=== PATIENT | male | born 1990 | race Caucasian/White ===

== ENCOUNTER 2016-12-09 05:53 | Day surgery (SDC) | payer BC ==
[2016-12-09 06:15] VITALS: O2SAT 97
[2016-12-09] MEDS ORDERED: Lactated Ringers 1,000 ML IV SCH (06:30)
[2016-12-09] MEDS ORDERED: DIPRIVAN 200 MG/20 ML IV ONE (08:00)
[2016-12-09] MEDS ORDERED: Ketamine HCl 50 MG/ML IV ONE (08:00)
[2016-12-09 08:31] VITALS: BP 134/79; PULSE 81
--- NOTE | 2016-12-09 10:49 | OP ---
SURGERY DATE/TIME: 12/09/2016709 PREOPERATIVE DIAGNOSIS: Chronic diarrhea. POSTOPERATIVE DIAGNOSIS: Normal colon. PROCEDURE: Colonoscopy with biopsy. SURGEON: Dr. Arita. ANESTHESIA: MAC. Medications given by anesthesia department. HISTORY: The patient is a 26 year-old white male patient who reports diarrhea over the past two weeks. He reports he has always had problems with diarrhea after having meals that has gotten worse recently. The patient was felt the need to have endoscopic evaluation. He was appraised of the risks of the procedure including the risk of perforation, phlebitis, untoward reaction to medication, bleeding, and missed lesions. The patient verbalized his understanding and desired to have the procedure performed. DESCRIPTION OF PROCEDURE: The patient was given the medications by the anesthesia department. The patient had continuous pulse oximetry, ECG monitoring, intermittent blood pressure monitoring, and tidal CO2 monitoring during the examination. He was placed in the left lateral decubitus position. A digital rectal examination was performed and revealed normal anal sphincter tone and no masses. The flexible Olympus pediatric colonoscope was used to intubate the rectum. A view of the colon was developed sequentially to the cecum. Upon insertion and withdrawal, including a retroflex view in the rectum, no mucosal lesions were encountered. We did multiple biopsies throughout the colon random segments to rule out any collagenous colitis. The scope was removed from the patient who tolerated the procedure well and was sent back to OP recovery in good condition. The prep was noted to be fair.
== END 2016-12-09 08:30 | disposition home or self-care (01) ==
LOC: SDC 05:53
PROVIDERS: ATTEND Family Medicine
PROC: 0DBE8ZX Excision of Large Intestine, Via Natural or Artificial Opening Endoscopic, Diagnostic (ICD-10-PCS; principal; 2016-12-09)
DX: R19.7 Diarrhea, unspecified (principal)
CPT/HCPCS: 00810; 36415; 88305; J2704

== ENCOUNTER 2017-08-03 10:28 | Emergency (ER) | payer OTHER | END 2017-08-03 12:06 | disposition left against medical advice (07) | LOC: ED 10:28 | DX: Z53.9 Procedure and treatment not carried out, unspecified reason (principal) ==

== ENCOUNTER 2021-03-23 14:00 | Emergency (ER) | payer OTHER ==
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
[2021-03-23 15:29] VITALS: BP 130/80; PULSE 96; O2SAT 98
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
== END 2021-03-23 16:59 | disposition home or self-care (01) ==
LOC: ED 14:00
DX: Z04.71 Encounter for examination and observation following alleged adult physical abuse (principal); S02.2XXA Fracture of nasal bones, initial encounter for closed fracture; Y04.0XXA Assault by unarmed brawl or fight, initial encounter; S00.83XA Contusion of other part of head, initial encounter
CPT/HCPCS: 70450; 70486; 72125; 99283

== ENCOUNTER 2024-02-07 06:35 | Emergency (ER) | payer OTHER ==
[2024-02-07 07:08] VITALS: TEMP 97.6
[2024-02-07 07:49] LABS: Absolute Neutrophil Ct (ANC) 5.76 x10^3/uL (1.4-6.9); BASOPHIL % 0.7 % (0.0-0.4); Basophil (Absolute #) 0.06 x10^3/uL (0-0.4); Eosinophil % 4.1 % (0.00-5.0); Eosinophil (Absolute #) 0.34 x10^3/uL (0-0.5); Hematocrit 37.2 % (42-50); Hemoglobin 12.1 g/dL (12.5-18.0); IMMATURE GRAN # 0.02 x10^3u/L (0.00-0.03); IMMATURE GRAN % 0.2 % (0.00-0.4); Lymphocyte (Absolute #) 1.34 x10^3/uL (1.0-4.6); Lymphocytes % 16.2 % (24.0-44.0); Mean Cell Volume 92.3 fL (78-100); Mean Corpuscular Hgb Concent. 32.5 g/dL (32-36); Mean Platelet Volume 8.7 fL (7.5-11.0); Monocyte (Absolute #) 0.76 x10^3/uL (0.0-1.3); Monocytes % 9.2 % (0.0-12.0); Neutrophil % 69.6 % (36.0-66.0); Platelet Count 419 x10^3/uL (150-450); Red Blood Count 4.03 x10^6/uL (4.1-5.6); Red Cell Distribution Width 12.5 % (11.5-14.0); White Blood Count 8.3 x10^3/uL (4.0-10.5)
[2024-02-07] MEDS ORDERED: Zofran 4 MG/2 ML VIAL ONE (07:49)
[2024-02-07] MEDS ORDERED: MORPHINE SULFATE 4 MG INJ ONE (07:49)
[2024-02-07] MEDS: MORPHINE SULFATE 4 MG INJ IV ONE (07:50)
[2024-02-07] MEDS: Zofran 4 MG/2 ML VIAL IV ONE (07:50)
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
[2024-02-07 08:04] LABS: ALBUMIN 3.9 g/dL (3.5-5.0); ANION GAP 12.8 MEQ/L (5-15); BILIRUBIN,TOTAL 0.2 mg/dL (0.2-1.3); Creatinine 1 0.96 mg/dL (0.66-1.25); EST GLOMERULAR FILTRATION RATE 106.4 ML/MIN; INR 1.86 (0.8-3.0); PROTIME 19.5 SECONDS (9.4-12.5); Potassium 4.2 mmol/L (3.5-5.1); Total Protein 7.5 g/dL (6.3-8.2)
[2024-02-07 08:07] LABS: Appearance Clear (Clear); Bacteria None Seen /HPF (None Seen); Bilirubin Negative (Negative); Blood Negative (Negative); Epithelial Cells None Seen /HPF (None Seen); Glucose, Urine Negative (Negative); Hyaline Casts NONE SEEN /LPF (0-2); Ketones Negative (Negative); Leukocyte Esterase Negative (Negative); Nitrite Negative (Negative); Ph 5.5 (4.6-8.0); Protein,Urine Dip Negative (Negative); RBC 0-2 /HPF (0-5); Urobilinogen 0.2 mg/dL (0.2); WBC 0-2 /HPF (0-5)
[2024-02-07 08:17] LABS: ADD URINE CULTURE? NO (NO)
[2024-02-07] MEDS ORDERED: SUBLIMAZE 100 MCG/2 ML ONE (09:04)
[2024-02-07] MEDS: SUBLIMAZE 100 MCG/2 ML IV ONE (09:05)
--- NOTE | 2024-02-07 09:19 | XRAY ---
CLINICAL HISTORY: Right flank pain/hematoma TECHNIQUE: Contiguous axial images were obtained from the level of the diaphragm to the pubic symphysis with intravenous contrast. Coronal and sagittal reconstructions were likewise performed and indicated to increase the sensitivity for detecting clinically relevant pathology. If IV contrast material had not been administered, the likelihood of detecting abnormalities relevant to the patient's condition would have been substantially decreased. CT scan was performed according to ALARA (as low as reasonable achievable). COMPARISON: None FINDINGS: The visualized lung bases show mild right pleural effusion with subsegmental atelectatic bands in bilateral lower lobes. Metallic prosthetic aortic valve noted. The liver is normal in size and attenuation. No focal liver lesions are seen. There is no intra or extrahepatic biliary ductal dilatation. Hepatic vasculature is patent. The gallbladder is present. The spleen, pancreas, and adrenal glands are unremarkable. The kidneys are normal in size and attenuation. There is no hydronephrosis or perinephric fat stranding. No renal calculi or renal masses are identified. The ureters are normal in caliber and no ureteral calculi are seen. The bladder is normal in contour. Pelvic viscera are unremarkable. No focal or diffuse bowel wall thickening or evidence of bowel obstruction is identified. The appendix is visualized in the right lower quadrant and appears within normal limits. Abdominal and pelvic vasculature is patent. No adenopathy or fluid collections are seen. No aggressive appearing osseous lesions are identified. IMPRESSION: 1. Mild right pleural effusion with subsegmental atelectatic bands in bilateral lower lobes. 2. Metallic prosthetic aortic valve noted. Electronically Signed by: Zak Marie MD. (02/07/2024 09:15:54 EDT)
[2024-02-07] MEDS: Sodium Chloride 0.9% 500 ML 500 ML IV ONE (09:20)
[2024-02-07] MEDS ORDERED: Sodium Chloride 0.9% 500 ML 500 ML IV ONE (09:20)
[2024-02-07 09:40] VITALS: O2SAT 96
[2024-02-07 09:53] VITALS: BP 97/65; PULSE 71; RESP 16
== END 2024-02-07 10:06 | disposition home or self-care (01) ==
LOC: ED 06:35
DX: R10.9 Unspecified abdominal pain (principal); Z79.01 Long term (current) use of anticoagulants; Z79.899 Other long term (current) drug therapy
CPT/HCPCS: 36000; 36415; 74177; 80053; 81001; 82150; 83690; 85025; 85610; 96374; 96375; 99284; J2270; J2405; J3010

== ENCOUNTER 2024-05-11 06:22 | Emergency (ER) | payer OTHER ==
[2024-05-11 06:28] VITALS: RESP 18; TEMP 98; O2SAT 97
--- NOTE | 2024-05-11 07:36 | ERPHSYRPT ---
- History of Present Illness Time Seen by Provider: 05/11/24 07:15 Source: patient, family Exam Limitations: no limitations Patient Subjective Stated Complaint: left lower leg pain Triage Nursing Assessment: Pt ambulated into ER without diff, spouse at bedside. Pt c/o left lower ext pain/cramping which started over the weekend. Pt has been eating alot of bananas since Thursday thinking maybe his potassium was low. Pt has a small bruise noted to LLE, pt is on blood thinners. No edema or swelling noted. Pt is just concerned that his potassium is off or could have a blood clot. Physician History: This is a 33-year-old white male patient who has had an aortic valve replacement surgery and is on Coumadin and is concerned that the pain and cramping in his left lower extremity may be either low potassium or a possible DVT. Patient denies chest pain. Patient denies shortness of breath. Method of Injury: other (No injury) Occurred: other (Symptoms occurred over the weekend) Quality: aching, cramping Severity of Pain-Max: mild (Moderate) Severity of Pain-Current: mild (To moderate) Lower Extremities Pain: other: left (Left calf) Modifying Factors: Improves With: nothing Associated Symptoms: none Allergies/Adverse Reactions: No Known Drug Allergies Allergy (Unverified 05/11/24 06:34) Home Medications: Metoprolol Tartrate 25 mg [Lopressor 25MG Tab] 25 mg PO BID 02/07/24 [History] Warfarin Sodium 6 mg PO BID 02/07/24 [History] Warfarin Sodium 1 mg [Coumadin] 1 mg PO BID 02/07/24 [History] Aspirin 81 gm Chew [Baby Aspirin 81 mg Chew] 1 tab PO DAILY 05/11/24 [History] Cetirizine HCl 10 mg PO DAILY 05/11/24 [History] Hx Tetanus, Diphtheria Vaccination/Date Given: Yes Hx Influenza Vaccination/Date Given: No Hx Pneumococcal Vaccination/Date Given: No Travel Risk - International Travel Have you traveled outside of the country in past 3 weeks: No - Emerging Infectious Disease Are you exhibiting symptoms associated with any current EIDs: No - Review of Systems Constitutional: No Symptoms Eyes: No Symptoms Ears, Nose, & Throat: No Symptoms Respiratory: No Symptoms Cardiac: No Symptoms Abdominal/Gastrointestinal: No Symptoms Genitourinary Symptoms: No Symptoms Musculoskeletal: Other (Left calf cramping and aching discomfort) Skin: No Symptoms Neurological: No Symptoms Psychological: No Symptoms Endocrine: No Symptoms Hematologic/Lymphatic: No Symptoms Immunological/Allergic: No Symptoms All Other Systems: Reviewed and Negative - Past Medical History Pertinent Past Medical History: Yes Neurological History: No Pertinent History ENT History: No Pertinent History Cardiac History: Other Respiratory History: No Pertinent History Endocrine Medical History: No Pertinent History Musculoskeletal History: No Pertinent History GI Medical History: No Pertinent History History: No Pertinent History Psycho-Social History: No Pertinent History Male Reproductive Disorders: No Pertinent History Other Medical History: pt states he had aortic stenosis as a child. - Past Surgical History Past Surgical History: Yes Neuro Surgical History: No Pertinent History Cardiac: Valve Replacement, Other Respiratory: No Pertinent History Gastrointestinal: No Pertinent History Genitourinary: No Pertinent History Musculoskeletal: No Pertinent History Male Surgical History: No Pertinent History Other Surgical History: pt states he had open heart surgery for aortic stenosis at age 1, valve replacement 01/22/24 - Social History Smoking Status: Never smoker How long have you smoked: since 17yo Exposure to second hand smoke: No Drug Use: none Patient Lives Alone: No - Social Determinants of Health Will the patient participate in the screening: Yes Do you worry about a steady place to live?: No Do you have any problems with any of the following?: No known problems In the past 12 months,have you had to go without utilities?: No Transportation Issues: No Has anyone in your support network made you feel unsafe?: No Have you or anyone in your house had to go without enough: No - Nursing Vital Signs Nursing Vital Signs: Initial Vital Signs Temperature 98.0 F 05/11/24 06:26 Pulse Rate 74 05/11/24 06:26 Respiratory Rate 18 05/11/24 06:26 Blood Pressure 118/76 05/11/24 06:26 O2 Sat by Pulse Oximetry 97 05/11/24 06:26 Pain Scale Pain Intensity 7 - Physical Exam General Appearance: no apparent distress, alert, anxiety, obese Eyes, Ears, Nose, Throat Exam: normal ENT inspection, moist mucous membranes Neck Exam: normal inspection, non-tender, supple, full range of motion Cardiovascular/Respiratory Exam: chest non-tender, no respiratory distress Gastrointestinal/Abdominal Exam: non-tender Back Exam: normal inspection, normal range of motion, No CVA tenderness, No vertebral tenderness Hips Exam: bilateral: non-tender (6), normal inspection, normal range of motion, no evidence of injury Legs Exam: right leg: non-tender, left leg: soft tissue tenderness (Left calf), other (Left calf), bilateral leg: normal inspection, normal range of motion, no evidence of injury Knees Exam: bilateral knee: non-tender, normal inspection, normal range of motion, no evidence of injury Ankle Exam: bilateral ankle: non-tender, normal inspection, normal range of motion, no evidence of injury Foot Exam: bilateral foot: non-tender, normal inspection, normal range of motion, no evidence of injury Neuro/Tendon Exam: normal sensation, normal motor functions, normal tendon functions, responds to pain, no evidence tendon injury Mental Status Exam: alert, oriented x 3, cooperative Skin Exam: normal color, warm, dry SpO2 Interpretation: normal SpO2: 97 O2 Delivery: Room Air - Course Nursing assessment & vital signs reviewed: Yes Ordered Tests: Active Orders 24 hr Category Date Time Status VENOUS UNILAT/LIMITED EXTREMIT [US] Stat Exams 05/11/24 07:08 Taken CBC W DIFF Stat Lab 05/11/24 07:45 Completed CMP Stat Lab 05/11/24 07:45 Completed MAGNESIUM Stat Lab 05/11/24 07:45 Completed PROTIME WITH INR Stat Lab 05/11/24 07:45 Completed PTT Stat Lab 05/11/24 07:45 Completed Lab/Rad Data: Laboratory Result Diagrams 05/11/24 07:45 05/11/24 07:45 Laboratory Results 05/11/24 05/11/24 05/11/24 Range/Units 07:45 07:45 07:45 WBC 5.7 (4.23-9.07) x10^3/uL RBC 4.82 (4.63-6.08) x10^6/uL Hgb 14.0 (13.7-17.5) g/dL Hct 43.5 (40.1-51.0) % MCV 90.2 (79.0-92.2) fL MCH 29.0 (25.7-32.2) pg MCHC 32.2 L (32.3-36.5) g/dL RDW 14.6 H (11.6-14.4) % Plt Count 205 (163-337) x10^3/uL MPV 9.8 (9.4-12.4) fL Gran % 61.8 (34.0-67.9) % Immature Gran % (Auto) 0.2 (0.001-0.429) % Nucleat RBC Rel Count 0.0 (0.00-0.2) % Eos # (Auto) 0.17 (0.04-0.54) x10^3/uL Immature Gran # (Auto) 0.01 (0.001-0.031) x10^3u/L Absolute Lymphs (auto) 1.50 (1.32-3.57) x10^3/uL Absolute Monos (auto) 0.47 (0.30-0.82) x10^3/uL Absolute Nucleated RBC 0.00 (0.00-0.012) x10^3u/L Lymphocytes % 26.3 (21.8-53.1) % Monocytes % 8.2 (5.3-12.2) % Eosinophils % 3.0 (0.8-7.0) % Basophils % 0.5 (0.2-1.2) % Absolute Granulocytes 3.53 (1.78-5.38) x10^3/uL Basophils # 0.03 (0.01-0.08) x10^3/uL PT 19.1 H (9.4-12.5) SECONDS INR 1.82 (0.8-3.0) APTT 38.1 H (25.1-36.5) SECONDS Sodium 138 (135-145) mmol/L Potassium 4.2 (3.5-5.1) mmol/L Chloride 110 H (98-107) mmol/L Carbon Dioxide 23 (22-30) mmol/L Anion Gap 10.3 (5-15) MEQ/L BUN 12 (9-20) mg/dL Creatinine 0.83 (0.66-1.25) mg/dL Estimated GFR 117.8 ML/MIN Glucose 99 (74-106) mg/dL Calcium 8.8 (8.4-10.2) mg/dL Magnesium 1.9 (1.6-2.3) mg/dL Total Bilirubin 0.50 (0.2-1.3) mg/dL AST 21 (17-59) U/L ALT 17 (0-50) U/L Alkaline Phosphatase 63 (38-126) U/L Serum Total Protein 6.9 (6.3-8.2) g/dL Albumin 3.9 (3.5-5.0) g/dL - Progress Progress: pain not gone completely, re-examined Progress Note: 05/11/24 07:37 My medical decision making and the assignment of low to moderate complexity of this patient's medical issue is based on review of the patient's past medical history, review of the patient's medication list, review of patient drug allergy list, history present illness and physical findings on examination. The workup in this patient includes CBC, CMP, PT/INR, ultrasound of the left lower extremity. Differential diagnosis includes but is not limited to electrolyte abnormalities, muscle skeletal pain, DVT 05/11/24 08:09 Laverne, the software tools developer/electroencephalographic technician stated that the left lower extremity is negative for DVT. 05/11/24 08:29 I interpreted the patient's laboratory data results. Based on the laboratory data results, the patient does not have any acute or emergent medical issue. Counseled pt/family regarding: lab results, diagnosis, need for follow-up, rad results Medical Desision Making - Independent Historian Additional History obtained from: Spouse - Diagnostic Testing Diagnostic test were ordered, analyzed, and reviewed by me: Yes Radiological Interpretation: Reviewed by me, Teleradiologist Report - Risk of complications Low Risk: Low risk of morbidity from additional dx testing or treatment - Departure Departure Disposition: Home Clinical Impression: Cramps of left lower extremity Condition: Stable Critical Care Time: No Referrals: ASHWIN KUO NP [Primary Care Provider] - Follow up/PCP as directed Additional Instructions: Call your prescribing provider today, 05/11/2024, to make arrangements for follow-up appointment to be evaluated in the next 3 to 5 days. In addition, obtain instructions regarding your Coumadin dosing. Make them aware that your INR today was 1.82.
[2024-05-11 07:48] LABS: Absolute Neutrophil Ct (ANC) 3.53 x10^3/uL (1.78-5.38); BASOPHIL % 0.5 % (0.2-1.2); Basophil (Absolute #) 0.03 x10^3/uL (0.01-0.08); Eosinophil (Absolute #) 0.17 x10^3/uL (0.04-0.54); Hematocrit 43.5 % (40.1-51.0); IMMATURE GRAN # 0.01 x10^3u/L (0.001-0.031); IMMATURE GRAN % 0.2 % (0.001-0.429); Lymphocytes % 26.3 % (21.8-53.1); Mean Cell Volume 90.2 fL (79.0-92.2); Mean Corpuscular Hgb Concent. 32.2 g/dL (32.3-36.5); Mean Platelet Volume 9.8 fL (9.4-12.4); Monocyte (Absolute #) 0.47 x10^3/uL (0.30-0.82); Monocytes % 8.2 % (5.3-12.2); Neutrophil % 61.8 % (34.0-67.9); Platelet Count 205 x10^3/uL (163-337); Red Blood Count 4.82 x10^6/uL (4.63-6.08); Red Cell Distribution Width 14.6 % (11.6-14.4); White Blood Count 5.7 x10^3/uL (4.23-9.07)
[2024-05-11 08:02] LABS: ALBUMIN 3.9 g/dL (3.5-5.0); ANION GAP 10.3 MEQ/L (5-15); BILIRUBIN,TOTAL 0.5 mg/dL (0.2-1.3); Calcium 8.8 mg/dL (8.4-10.2); Creatinine 1 0.83 mg/dL (0.66-1.25); EST GLOMERULAR FILTRATION RATE 117.8 ML/MIN; MAGNESIUM 1.9 mg/dL (1.6-2.3); Potassium 4.2 mmol/L (3.5-5.1); Total Protein 6.9 g/dL (6.3-8.2)
[2024-05-11 08:04] LABS: INR 1.82 (0.8-3.0); PROTIME 19.1 SECONDS (9.4-12.5); PTT 38.1 SECONDS (25.1-36.5)
[2024-05-11 08:32] VITALS: BP 108/64; PULSE 62
--- NOTE | 2024-05-11 08:59 | XRAY ---
Indication: Calf pain. DVT. Two-dimensional sonogram and color Doppler imaging major venous vessels left leg performed. Comparison: None No thrombus seen in the examined deep venous vessels left leg including greater saphenous vein. Veins demonstrate normal compressibility. Venous waveforms are normal with and without augmentation. Targeted ultrasound over calf is negative for focal solid/cystic mass or abnormal fluid collection. Impression: Left leg negative for DVT.
== END 2024-05-11 08:50 | disposition home or self-care (01) ==
LOC: ED 06:22
DX: R25.2 Cramp and spasm (principal); M79.605 Pain in left leg; Z79.01 Long term (current) use of anticoagulants; Z79.899 Other long term (current) drug therapy
CPT/HCPCS: 36415; 80053; 83735; 85025; 85610; 85730; 93971; 99283

== ENCOUNTER 2024-08-31 17:12 | Emergency (ER) | payer OTHER ==
[2024-08-31 17:45] VITALS: RESP 18; O2SAT 97
--- NOTE | 2024-08-31 18:45 | ERPHSYRPT ---
- History of Present Illness Time Seen by Provider: 08/31/24 17:26 Source: patient Exam Limitations: no limitations Patient Subjective Stated Complaint: pt here for bruising to left lower leg for a week after hitting it on equipment. pt is concerned because he is on coumadin and is inr was not theraputic Triage Nursing Assessment: pt alert, walked in, resp easy, skin w/d/p.has bruising to right lower leg, no warmth or swelling, Physician History: 34-year-old male with history of mechanical aortic valve on Coumadin presented in the ER after he accidentally kicked his left leg against some equipment while at work almost a week ago followed by swelling and some pain. Patient report improvement in the pain but still have some swelling and discoloration. Concerned about having blood clot as patient INR was 1.4 yesterday. Denies any difficulty breathing. No difficulty ambulation. Allergies/Adverse Reactions: No Known Drug Allergies Allergy (Verified 08/31/24 17:33) Home Medications: Metoprolol Tartrate 25 mg [Lopressor 25MG Tab] 25 mg PO BID 02/07/24 [History] Warfarin Sodium 6 mg PO BID 02/07/24 [History] Warfarin Sodium 1 mg [Coumadin] 1 mg PO BID 02/07/24 [History] Aspirin 81 gm Chew [Baby Aspirin 81 mg Chew] 1 tab PO DAILY 05/11/24 [History] Cetirizine HCl 10 mg PO DAILY 05/11/24 [History] Hx Tetanus, Diphtheria Vaccination/Date Given: Yes Hx Influenza Vaccination/Date Given: No Hx Pneumococcal Vaccination/Date Given: No Immunizations Up to Date: Yes Travel Risk - International Travel Have you traveled outside of the country in past 3 weeks: No - Emerging Infectious Disease Are you exhibiting symptoms associated with any current EIDs: No - Review of Systems Constitutional: No Symptoms Ears, Nose, & Throat: No Symptoms Respiratory: No Symptoms Cardiac: No Symptoms Abdominal/Gastrointestinal: No Symptoms Musculoskeletal: Injury Skin: Skin Lesions Neurological: No Symptoms Endocrine: No Symptoms Hematologic/Lymphatic: No Symptoms - Past Medical History Pertinent Past Medical History: Yes Neurological History: No Pertinent History ENT History: No Pertinent History Cardiac History: Congenital Heart Disease, Other Respiratory History: No Pertinent History Endocrine Medical History: No Pertinent History Musculoskeletal History: No Pertinent History GI Medical History: No Pertinent History History: No Pertinent History Psycho-Social History: No Pertinent History Male Reproductive Disorders: No Pertinent History Other Medical History: pt states he had aortic stenosis as a child. - Past Surgical History Past Surgical History: Yes Neuro Surgical History: No Pertinent History Cardiac: Valve Replacement, Other Respiratory: No Pertinent History Gastrointestinal: No Pertinent History Genitourinary: No Pertinent History Musculoskeletal: No Pertinent History Male Surgical History: No Pertinent History Other Surgical History: pt states he had open heart surgery for aortic stenosis at age 1, valve replacement 01/22/24 - Social History Smoking Status: Former smoker How long have you smoked: since 17yo Exposure to second hand smoke: No Drug Use: marijuana Patient Lives Alone: No - Social Determinants of Health Will the patient participate in the screening: Yes Do you worry about a steady place to live?: No Do you have any problems with any of the following?: No known problems In the past 12 months,have you had to go without utilities?: No Transportation Issues: No Has anyone in your support network made you feel unsafe?: No Have you or anyone in your house had to go without enough: No - Nursing Vital Signs Nursing Vital Signs: Initial Vital Signs Pulse Rate 97 H 08/31/24 17:44 Respiratory Rate 18 08/31/24 17:44 Blood Pressure 137/86 08/31/24 17:44 O2 Sat by Pulse Oximetry 97 08/31/24 17:44 Pain Scale Pain Intensity 1 - Physical Exam General Appearance: no apparent distress, alert Neck Exam: normal inspection, full range of motion Cardiovascular/Respiratory Exam: normal breath sounds, regular rate/rhythm Gastrointestinal/Abdominal Exam: non-tender, soft, no organomegaly Legs Exam: right leg: non-tender, normal inspection, normal range of motion, no evidence of injury, left leg: pain, soft tissue tenderness, swelling Knees Exam: bilateral knee: non-tender, normal inspection, normal range of motion, no evidence of injury Ankle Exam: bilateral ankle: non-tender, normal inspection, normal range of motion, no evidence of injury Neuro/Tendon Exam: normal sensation, normal motor functions, normal tendon functions Mental Status Exam: alert, oriented x 3, cooperative Skin Exam: normal color SpO2 Interpretation: normal SpO2: 97 O2 Delivery: Room Air Ordered Tests: Active Orders 24 hr Category Date Time Status VENOUS UNILAT/LIMITED EXTREMIT [US] Stat Exams 08/31/24 18:05 Ordered - Progress Progress: unchanged Progress Note: 08/31/24 18:54 34-year-old is evaluated in the ER for left leg swelling and pain/discoloration after trauma with subtherapeutic INR and concern for DVT. I have ordered ultrasound, patient does not want to wait and decided to leave AGAINST MEDICAL ADVICE. He is advised to follow-up outpatient and continue with Coumadin. Discussed signs symptoms of worsening needing return to ER which he seems understanding. Patient walked out of the ER in stable condition. Counseled pt/family regarding: diagnosis, need for follow-up Medical Desision Making - Diagnostic Testing Diagnostic test were ordered, analyzed, and reviewed by me: Yes - Departure Departure Disposition: AMA Clinical Impression: Leg swelling Condition: Stable Critical Care Time: No Referrals: ASHWIN KUO, HOSIERY OPERATOR [Primary Care Provider] - Follow up/PCP as directed
[2024-08-31 18:58] VITALS: BP 126/79; PULSE 74
== END 2024-08-31 19:00 | disposition left against medical advice (07) ==
LOC: ED 17:12
DX: M79.89 Other specified soft tissue disorders (principal); Z79.01 Long term (current) use of anticoagulants; Z79.899 Other long term (current) drug therapy
CPT/HCPCS: 99281